=== PATIENT | male | born 1950 ===

== ENCOUNTER 2017-11-27 16:00 | Emergency (ER) | payer OTHER, MEDICARE ==
[~2017-11-27] VITALS: Ht 177.8 cm; Wt 74.8 kg
--- NOTE | ~2017-11-27 | EKG ---
[place], [place] ELECTROCARDIOGRAM REPORT NAME: AYDEE LEE UNIT #: [id number] ROOM: DOCTOR: ELVIA MARIE MD BIRTHDATE: [birth year] DOS: 11/27/2017 TIME: 1626 hours. FINDINGS: 1. Normal sinus rhythm at 96 beats per minute. 2. The tracing is normal. 3. No previous tracing is available for comparison. ELVIA MARIE MD CM:EKGRPT:ELECTROCARDIOGRAM REPORT [id number] ELVIA MARIE MD
[~2017-11-27 16:00] MED LIST: AMLODIPINE BESY1 TAB PO; ANTIVERT25 MG PO; AUGMENTIN 875875 MG PO; HYDROCODONE BIT1 T11 PO; LIPITOR20 MG PO
[2017-11-27 16:33] LABS: BASO % 0.3 % (0.0-1.0); EOS # 0.1 10*3/uL (0.0-0.4); EOS % 0.4 % (1.0-4.0); HEMATOCRIT 41.2 % (42.0-52.0); HEMOGLOBIN 13.6 g/dl (14.0-18.0); LYMPH # 4.4 10*3/uL (1.3-4.4); LYMPH % 33.9 % (27.0-41.0); MEAN CORPUSCULAR HGB 29.7 pg (27.0-31.0); MEAN PLATELET VOLUME 9.2 fl (9.6-12.3); MONO % 7.8 % (3.0-9.0); NEUT # 7.1 10*3/uL (2.3-7.9); NEUT % 55.3 % (47.0-73.0); PLATELET COUNT AUTOMATED 535 10*3/uL (130-400); RED BLOOD COUNT 4.58 10*6/uL (4.50-5.90); RED CELL DISTRI WIDTH 12.8 % (0-14.5); WHITE BLOOD COUNT 12.9 10*3/uL (4.8-10.8)
[2017-11-27 16:48] LABS: ALBUMIN 3.5 gm/dl (3.1-4.5); ALKALINE PHOSPHATASE 138 U/L (45-117); BUN 27 mg/dl (7-24); CHLORIDE 102 mmol/L (98-107); CREATININE 0.95 mg/dL (0.70-1.30); POTASSIUM 3.8 mmol/L (3.5-5.1); SGOT/AST 16 IU/L (3-35); SGPT/ALT 83 U/L (12-78); SODIUM 139 mmol/L (136-145)
== END 2017-11-27 18:02 ==
LOC: ED 16:00
PROVIDERS: Nurse Practitioner
DX: S20.219A Contusion of unspecified front wall of thorax, initial encounter (principal); I10 Essential (primary) hypertension; R60.0 Localized edema; Z79.899 Other long term (current) drug therapy; V43.52XA Car driver injured in collision with other type car in traffic accident, initial encounter; Y93.89 Activity, other specified; Y92.410 Unspecified street and highway as the place of occurrence of the external cause; Y99.8 Other external cause status